=== PATIENT | female | born 1945 | race Caucasian/White ===

== ENCOUNTER 2016-09-02 23:40 | Inpatient (IN) | payer MEDICARE ==
[~2016-09-02] VITALS: Ht 162.6 cm; Wt 108.9 kg
[2016-09-03] MEDS ORDERED: CEFTRIAXONE 1 GM VIAL ONE (03:30)
[2016-09-03] MEDS ORDERED: SODIUM CHLORIDE 0.9% 100 ML IV ONE (03:30)
[2016-09-03] MEDS ORDERED: DUONEB INH ONE ×2 (03:47)
[2016-09-03] MEDS ORDERED: Furosemide 40 MG/4 ML VIAL ONE (04:54)
[2016-09-03 06:05] VITALS: BP_SYST 142; BP_SYST 148; RESP 20; TEMP 97.7; BMI 44.5
[2016-09-03] MEDS ORDERED: TRAMADOL 50 MG TAB PO PRN (06:05)
[2016-09-03] MEDS: ALLOPURINOL 300 MG TAB PO SCH (08:21)
[2016-09-03] MEDS: AMITRIPTYLINE 50 MG TAB PO SCH (08:21)
[2016-09-03] MEDS: METHYLPRED SOD SUCC 125 MG/2 ML VIAL IV SCH ×2 (08:22→12:06)
[2016-09-03] MEDS: CEFTRIAXONE 1 GM in SODIUM CHLORIDE 0.9% 50 ML IV SCH (08:22)
[2016-09-03] MEDS ORDERED: Furosemide 40 MG TAB PO SCH (09:00)
[2016-09-03] MEDS: AZITHROMYCIN 500 MG in SODIUM CHLORIDE 0.9% 250 ML IV SCH (10:03)
[2016-09-03] MEDS: NEB-XOPENEX 0.63 MG/3 ML INH SCH ×4 (11:02→23:16)
[2016-09-03] MEDS: NEB-BUDESONIDE 0.5 MG INH SCH (11:02)
[2016-09-03] MEDS: NEB-BROVANA 15 MCG/2 ML INH SCH ×2 (11:02→19:20)
[2016-09-03 11:05] VITALS: BP_SYST 134; RESP 24; TEMP 97.4
[2016-09-03 11:06] VITALS: RESP 16
[2016-09-03] MEDS ORDERED: DEXTROSE 50% SYRINGE 50 ML IV PRN (11:10)
[2016-09-03] MEDS ORDERED: GLUCAGON 1 MG VIAL IM PRN (11:10)
[2016-09-03] MEDS: LEVEMIR INSULIN SUBQ SCH (11:29)
[2016-09-03] MEDS ORDERED: GADAVIST 10 ML SYR (HMH) IV ONE (14:16)
[2016-09-03 15:38] VITALS: BP_SYST 157; RESP 20; TEMP 97.3
[2016-09-03] MEDS: Furosemide 20 MG/2 ML VIAL IV SCH (17:21)
[2016-09-03 19:55] VITALS: BP_SYST 116; TEMP 98.3
[2016-09-03 19:56] VITALS: RESP 16
[2016-09-04] VITALS (7 sets, daily range): BP systolic 142–170; RESP 18–20; TEMP 97.3–98.3
[2016-09-04] MEDS: NEB-XOPENEX 0.63 MG/3 ML INH SCH ×6 (02:41→23:19)
[2016-09-04] MEDS: NEB-BUDESONIDE 0.5 MG INH SCH (07:01)
[2016-09-04] MEDS: NEB-BROVANA 15 MCG/2 ML INH SCH ×2 (07:01→19:39)
[2016-09-04] MEDS: Furosemide 20 MG/2 ML VIAL IV SCH ×2 (08:08→17:07)
[2016-09-04] MEDS: CEFTRIAXONE 1 GM in SODIUM CHLORIDE 0.9% 50 ML IV SCH (08:08)
[2016-09-04] MEDS: AMITRIPTYLINE 50 MG TAB PO SCH (11:20)
[2016-09-04] MEDS: KCL CR 8 MEQ TAB PO SCH (11:20)
[2016-09-04] MEDS: AZITHROMYCIN 500 MG in SODIUM CHLORIDE 0.9% 250 ML IV SCH (11:20)
[2016-09-04] MEDS: LEVEMIR INSULIN SUBQ SCH (11:21)
[2016-09-04] MEDS: ALLOPURINOL 300 MG TAB PO SCH (11:21)
[2016-09-05] MEDS: NEB-XOPENEX 0.63 MG/3 ML INH SCH ×6 (02:54→22:19)
[2016-09-05 03:25] VITALS: BP_SYST 138; RESP 18; TEMP 97.5
[2016-09-05] MEDS: NEB-BUDESONIDE 0.5 MG INH SCH (06:46)
[2016-09-05] MEDS: NEB-BROVANA 15 MCG/2 ML INH SCH ×2 (06:46→18:38)
[2016-09-05 07:22] VITALS: BP_SYST 148; RESP 18; TEMP 97.3
[2016-09-05] MEDS: CEFTRIAXONE 1 GM in SODIUM CHLORIDE 0.9% 50 ML IV SCH (08:49)
[2016-09-05] MEDS: ALLOPURINOL 300 MG TAB PO SCH (08:49)
[2016-09-05] MEDS: LEVEMIR INSULIN SUBQ SCH (08:49)
[2016-09-05] MEDS: KCL CR 8 MEQ TAB PO SCH (08:50)
[2016-09-05] MEDS: AMITRIPTYLINE 50 MG TAB PO SCH (08:50)
[2016-09-05] MEDS ORDERED: Furosemide 40 MG/4 ML VIAL IV SCH ×2 (09:00→17:00)
[2016-09-05] MEDS: AZITHROMYCIN 500 MG in SODIUM CHLORIDE 0.9% 250 ML IV SCH (11:09)
[2016-09-05 11:13] VITALS: BP_SYST 138; RESP 20; TEMP 97.3
[2016-09-05 15:22] VITALS: BP_SYST 126; RESP 18; TEMP 97.5
[2016-09-05] MEDS: Furosemide 40 MG/4 ML VIAL IV SCH (16:40)
[2016-09-05 19:45] VITALS: BP_SYST 152; RESP 18; TEMP 97.4
[2016-09-06] VITALS (7 sets, daily range): BP systolic 123–153; RESP 16–22; TEMP 97.2–98.2
[2016-09-06] MEDS: NEB-XOPENEX 0.63 MG/3 ML INH SCH ×6 (03:00→23:00)
[2016-09-06] MEDS: NEB-BROVANA 15 MCG/2 ML INH SCH ×2 (06:59→18:24)
[2016-09-06] MEDS: NEB-BUDESONIDE 0.5 MG INH SCH ×2 (06:59→18:24)
[2016-09-06] MEDS ORDERED: MISSING DOSE XX ONE (08:00)
[2016-09-06] MEDS: ALLOPURINOL 300 MG TAB PO SCH (08:43)
[2016-09-06] MEDS: Losartan 25 MG TAB PO SCH (08:43)
[2016-09-06] MEDS: KCL CR 8 MEQ TAB PO SCH (08:43)
[2016-09-06] MEDS: AMITRIPTYLINE 50 MG TAB PO SCH (08:43)
[2016-09-06] MEDS: LEVEMIR INSULIN SUBQ SCH (08:47)
[2016-09-06] MEDS: CEFTRIAXONE 1 GM in SODIUM CHLORIDE 0.9% 50 ML IV SCH (08:48)
[2016-09-06] MEDS: Furosemide 40 MG/4 ML VIAL IV SCH (08:48)
[2016-09-06] MEDS ORDERED: DIGOXIN 0.5 MG/2 ML AMP IV ONE (10:05)
[2016-09-06] MEDS: SPIRONOLACTONE 25 MG TAB PO SCH (11:36)
[2016-09-06] MEDS: Carvedilol 3.125 MG TAB PO SCH ×2 (11:36→21:38)
[2016-09-07] VITALS (10 sets, daily range): BP systolic 128–150; RESP 16–22; TEMP 97.4–99.5
[2016-09-07] MEDS: NEB-XOPENEX 0.63 MG/3 ML INH SCH ×6 (02:42→23:30)
[2016-09-07] MEDS: NEB-BROVANA 15 MCG/2 ML INH SCH ×2 (06:30→19:13)
[2016-09-07] MEDS: NEB-BUDESONIDE 0.5 MG INH SCH ×2 (06:30→19:13)
[2016-09-07] MEDS: AMITRIPTYLINE 50 MG TAB PO SCH (08:08)
[2016-09-07] MEDS: SPIRONOLACTONE 25 MG TAB PO SCH (08:08)
[2016-09-07] MEDS: ALLOPURINOL 300 MG TAB PO SCH (08:08)
[2016-09-07] MEDS: Losartan 25 MG TAB PO SCH (08:08)
[2016-09-07] MEDS: Carvedilol 3.125 MG TAB PO SCH ×2 (08:08→21:39)
[2016-09-07] MEDS: Furosemide 40 MG/4 ML VIAL IV SCH (08:09)
[2016-09-07] MEDS: CEFTRIAXONE 1 GM in SODIUM CHLORIDE 0.9% 50 ML IV SCH (08:09)
[2016-09-07] MEDS: LEVEMIR INSULIN SUBQ SCH (10:03)
[2016-09-07] MEDS: Furosemide 20 MG/2 ML VIAL IV SCH (19:14)
[2016-09-08] VITALS (10 sets, daily range): BP systolic 127–181; RESP 18–20; TEMP 97.4–98.7
[2016-09-08] MEDS: NEB-XOPENEX 0.63 MG/3 ML INH SCH ×6 (02:46→22:51)
[2016-09-08] MEDS: NEB-BUDESONIDE 0.5 MG INH SCH (07:24)
[2016-09-08] MEDS: NEB-BROVANA 15 MCG/2 ML INH SCH ×2 (07:24→20:07)
[2016-09-08] MEDS: Carvedilol 3.125 MG TAB PO SCH ×2 (08:00→20:47)
[2016-09-08] MEDS: Losartan 25 MG TAB PO SCH (08:00)
[2016-09-08] MEDS: SPIRONOLACTONE 25 MG TAB PO SCH (08:00)
[2016-09-08] MEDS: AMITRIPTYLINE 50 MG TAB PO SCH (08:00)
[2016-09-08] MEDS: CEFTRIAXONE 1 GM in SODIUM CHLORIDE 0.9% 50 ML IV SCH (08:00)
[2016-09-08] MEDS: ALLOPURINOL 300 MG TAB PO SCH (08:00)
[2016-09-08] MEDS: LEVEMIR INSULIN SUBQ SCH (08:01)
[2016-09-08] MEDS: Furosemide 20 MG/2 ML VIAL IV SCH (08:01)
[2016-09-08] MEDS ORDERED: Furosemide 20 MG/2 ML VIAL IV ONE (10:35)
[2016-09-08] MEDS ORDERED: MISSING DOSE XX ONE (11:00)
[2016-09-08] MEDS: Furosemide 40 MG/4 ML VIAL IV SCH (17:03)
[2016-09-09] VITALS (9 sets, daily range): BP systolic 123–161; RESP 12–24; TEMP 97.3–98.7
[2016-09-09] MEDS: NEB-XOPENEX 0.63 MG/3 ML INH SCH ×6 (02:37→22:46)
[2016-09-09] MEDS: NEB-BROVANA 15 MCG/2 ML INH SCH ×2 (07:00→18:47)
[2016-09-09] MEDS: NEB-BUDESONIDE 0.5 MG INH SCH (07:00)
[2016-09-09] MEDS ORDERED: LEXISCAN 0.4 MG/5 ML SYRINGE IV ONE (08:38)
[2016-09-09] MEDS: Furosemide 40 MG/4 ML VIAL IV SCH ×2 (10:23→17:01)
[2016-09-09] MEDS: Carvedilol 3.125 MG TAB PO SCH ×2 (10:28→21:40)
[2016-09-09] MEDS: Losartan 25 MG TAB PO SCH (10:28)
[2016-09-09] MEDS: CEFTRIAXONE 1 GM in SODIUM CHLORIDE 0.9% 50 ML IV SCH (10:28)
[2016-09-09] MEDS: AMITRIPTYLINE 50 MG TAB PO SCH (10:28)
[2016-09-09] MEDS: ALLOPURINOL 300 MG TAB PO SCH (10:30)
[2016-09-09] MEDS: SPIRONOLACTONE 25 MG TAB PO SCH (10:30)
[2016-09-10] VITALS (9 sets, daily range): BP systolic 118–149; RESP 20; TEMP 97.3–98.3
[2016-09-10] MEDS: NEB-XOPENEX 0.63 MG/3 ML INH SCH ×6 (02:32→22:43)
[2016-09-10] MEDS: NEB-BUDESONIDE 0.5 MG INH SCH ×2 (06:50→19:19)
[2016-09-10] MEDS: NEB-BROVANA 15 MCG/2 ML INH SCH ×2 (06:50→19:19)
[2016-09-10] MEDS: ALLOPURINOL 300 MG TAB PO SCH (08:08)
[2016-09-10] MEDS: SPIRONOLACTONE 25 MG TAB PO SCH (08:08)
[2016-09-10] MEDS: Carvedilol 3.125 MG TAB PO SCH ×2 (08:08→21:54)
[2016-09-10] MEDS: Furosemide 40 MG/4 ML VIAL IV SCH ×2 (08:08→16:46)
[2016-09-10] MEDS: Losartan 25 MG TAB PO SCH (08:08)
[2016-09-10] MEDS: AMITRIPTYLINE 50 MG TAB PO SCH (08:08)
[2016-09-10] MEDS: DIGOXIN 0.5 MG/2 ML AMP IV SCH (12:21)
[2016-09-11] VITALS (8 sets, daily range): BP systolic 95–137; RESP 16–20; TEMP 97.4–98.6
[2016-09-11] MEDS: NEB-XOPENEX 0.63 MG/3 ML INH SCH ×6 (02:30→22:28)
[2016-09-11] MEDS: NEB-BUDESONIDE 0.5 MG INH SCH (06:34)
[2016-09-11] MEDS: NEB-BROVANA 15 MCG/2 ML INH SCH ×2 (06:34→18:49)
[2016-09-11] MEDS: Furosemide 40 MG/4 ML VIAL IV SCH ×2 (08:07→17:18)
[2016-09-11] MEDS: Losartan 25 MG TAB PO SCH (08:07)
[2016-09-11] MEDS: ALLOPURINOL 300 MG TAB PO SCH (08:07)
[2016-09-11] MEDS: AMITRIPTYLINE 50 MG TAB PO SCH (08:07)
[2016-09-11] MEDS: Carvedilol 3.125 MG TAB PO SCH ×2 (08:08→19:59)
[2016-09-11] MEDS: SPIRONOLACTONE 25 MG TAB PO SCH (08:08)
[2016-09-11] MEDS: DIGOXIN 0.5 MG/2 ML AMP IV SCH (12:02)
[2016-09-11] MEDS ORDERED: METOLAZONE 5 MG TAB PO ONE (18:05)
[2016-09-11] MEDS: LISINOPRIL 2.5 MG TAB PO SCH (19:59)
[2016-09-12] VITALS (7 sets, daily range): BP systolic 120–157; RESP 16–20; TEMP 97.4–98.1
[2016-09-12] MEDS: NEB-XOPENEX 0.63 MG/3 ML INH SCH ×6 (02:25→22:29)
[2016-09-12] MEDS: NEB-BUDESONIDE 0.5 MG INH SCH (07:14)
[2016-09-12] MEDS: NEB-BROVANA 15 MCG/2 ML INH SCH ×2 (07:14→18:54)
[2016-09-12] MEDS: Carvedilol 3.125 MG TAB PO SCH ×2 (10:35→21:59)
[2016-09-12] MEDS: SPIRONOLACTONE 25 MG TAB PO SCH (10:35)
[2016-09-12] MEDS: AMITRIPTYLINE 50 MG TAB PO SCH (10:35)
[2016-09-12] MEDS: Furosemide 40 MG/4 ML VIAL IV SCH ×2 (10:35→17:52)
[2016-09-12] MEDS: LISINOPRIL 2.5 MG TAB PO SCH (10:35)
[2016-09-12] MEDS: Losartan 25 MG TAB PO SCH (10:35)
[2016-09-12] MEDS: ALLOPURINOL 300 MG TAB PO SCH (10:35)
[2016-09-12] MEDS: DIGOXIN 0.25 MG TAB PO SCH (13:50)
[2016-09-13] MEDS: NEB-XOPENEX 0.63 MG/3 ML INH SCH ×6 (02:45→23:00)
[2016-09-13 03:04] VITALS: BP_SYST 148; RESP 20; TEMP 97.7
[2016-09-13] MEDS: NEB-BROVANA 15 MCG/2 ML INH SCH ×2 (07:35→19:58)
[2016-09-13] MEDS: NEB-BUDESONIDE 0.5 MG INH SCH (07:35)
[2016-09-13 07:50] VITALS: BP_SYST 149; RESP 18; TEMP 97.6
[2016-09-13] MEDS: Losartan 25 MG TAB PO SCH (08:42)
[2016-09-13] MEDS: ALLOPURINOL 300 MG TAB PO SCH (08:42)
[2016-09-13] MEDS: AMITRIPTYLINE 50 MG TAB PO SCH (08:42)
[2016-09-13] MEDS: Carvedilol 3.125 MG TAB PO SCH ×2 (08:43→21:09)
[2016-09-13] MEDS: SPIRONOLACTONE 25 MG TAB PO SCH (08:43)
[2016-09-13] MEDS ORDERED: MISSING DOSE XX ONE (09:05)
[2016-09-13] MEDS: Furosemide 20 MG/2 ML VIAL IV SCH ×2 (10:43→17:10)
[2016-09-13 11:18] VITALS: BP_SYST 132; RESP 18; TEMP 97.4
[2016-09-13] MEDS: DIGOXIN 0.25 MG TAB PO SCH (12:14)
[2016-09-13 13:00] VITALS: Ht 162.6 cm; Wt 108.9 kg
[2016-09-13 16:08] VITALS: BP_SYST 143; RESP 18; TEMP 97.7
[2016-09-13 19:48] VITALS: BP_SYST 143; RESP 20; TEMP 97.6
[2016-09-13 23:03] VITALS: BP_SYST 153; RESP 20; TEMP 97.9
[2016-09-14] VITALS (9 sets, daily range): BP systolic 114–159; RESP 18–22; TEMP 97.2–97.9
[2016-09-14] MEDS: NEB-XOPENEX 0.63 MG/3 ML INH SCH ×4 (02:35→14:39)
[2016-09-14] MEDS: NEB-BROVANA 15 MCG/2 ML INH SCH (07:44)
[2016-09-14] MEDS: NEB-BUDESONIDE 0.5 MG INH SCH (07:44)
[2016-09-14] MEDS: Furosemide 20 MG/2 ML VIAL IV SCH (08:15)
[2016-09-14] MEDS: SPIRONOLACTONE 25 MG TAB PO SCH (08:16)
[2016-09-14] MEDS: Carvedilol 3.125 MG TAB PO SCH (08:16)
[2016-09-14] MEDS: ALLOPURINOL 300 MG TAB PO SCH (08:16)
[2016-09-14] MEDS: Losartan 25 MG TAB PO SCH (08:16)
[2016-09-14] MEDS: AMITRIPTYLINE 50 MG TAB PO SCH (08:16)
[2016-09-14] MEDS: DIGOXIN 0.25 MG TAB PO SCH (12:14)
== END 2016-09-14 16:10 | disposition home or self-care (01) | DRG 292 ==
LOC: ER 23:40 → EMR 09-03 04:56 → ENPENDDIS 09-03 04:56 → 3NT 09-03 05:48
PROVIDERS: ADMIT Internal Medicine Hematology & Oncology; ATTEND Internal Medicine Hematology & Oncology
DX: I11.0 Hypertensive heart disease with heart failure (principal); J44.1 Chronic obstructive pulmonary disease with (acute) exacerbation; C78.02 Secondary malignant neoplasm of left lung; C64.1 Malignant neoplasm of right kidney, except renal pelvis; C78.01 Secondary malignant neoplasm of right lung; B96.1 Klebsiella pneumoniae [K. pneumoniae] as the cause of diseases classified elsewhere; N39.0 Urinary tract infection, site not specified; I50.9 Heart failure, unspecified; R31.9 Hematuria, unspecified; R09.02 Hypoxemia; F17.210 Nicotine dependence, cigarettes, uncomplicated; I25.10 Atherosclerotic heart disease of native coronary artery without angina pectoris; E11.9 Type 2 diabetes mellitus without complications; M06.9 Rheumatoid arthritis, unspecified
CPT/HCPCS: 36415; 70553; 71010; 71020; 76700; 78452; 80048; 80053; 81001; 82947; 83735; 83880; 85025; 85610; 85730; 87077; 87088; 87186; 93017; 94640; 94799; 96374; 96375